=== PATIENT | female | born 1995 | race Caucasian/White ===

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

== ENCOUNTER 2017-08-30 19:09 | Emergency (ER) | payer OTHER ==
[~2017-08-30] VITALS: Ht 170.2 cm; Wt 71.7 kg
[~2017-08-30 19:09] MED LIST: IMPLANON; TRAM-10 PO
[2017-08-30 19:11] VITALS: TEMP 36.8; Ht 170.2 cm; Wt 71.7 kg
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
--- NOTE | 2017-08-30 20:06 | DIAGNOSTIC IMAGING REPORT ---
ABDOMEN 2VIEW W/PA CHEST RTN HISTORY: 21 years-old Female eval for constipation and impaction acute constipation COMPARISON: None available TECHNIQUE: Frontal view of the chest with erect and supine views of the abdomen FINDINGS: Cardiomediastinal and hilar silhouettes are within normal limits. There is no pneumothorax, pleural effusion, focal airspace consolidation or overt pulmonary edema. Bones of the chest are grossly intact. No pneumoperitoneum on the upright projection. The bowel gas pattern is nonobstructive. There are a few nonspecific small bowel air-fluid levels within the right upper abdomen, likely incidental. There is a moderate volume of formed stool throughout the bowel, predominantly within the ascending portion and rectosigmoid. No urolith. No organomegaly or fracture. IMPRESSION: 1. No acute cardiopulmonary process. 2. Nonobstructive bowel gas pattern. 3. Moderate volume of formed stool throughout the colon, notably within the ascending and rectosigmoid portions suggests constipation. The above report was generated using voice recognition software. It may contain grammatical, syntax or spelling errors. Electronically signed by: Sae Be M.D. 08/30/2017 8:04 PM Dictated Date/Time: 08/30/2017 8:02 PM
[2017-08-30] MEDS ORDERED: ETON1IMP2 INTRAD (20:27)
[2017-08-30] MEDS ORDERED: HYDR-5688 PO (20:28)
[2017-08-30] MEDS ORDERED: IBUP-1459 PO (20:29)
[2017-08-30] MEDS ORDERED: ONDA4TAB10 SL (20:30)
[2017-08-30 21:16] VITALS: BP 131/70; PULSE 58; O2SAT 98
== END 2017-08-30 21:17 | disposition home or self-care (01) ==
LOC: C.EDB 19:10 → C.EDC 21:17
DX: K59.03 Drug induced constipation (principal); S30.1XXA Contusion of abdominal wall, initial encounter; V89.2XXA Person injured in unspecified motor-vehicle accident, traffic, initial encounter; Z79.3 Long term (current) use of hormonal contraceptives

== ENCOUNTER 2017-11-08 09:33 | Emergency (ER) | payer OTHER ==
[~2017-11-08] VITALS: Ht 170.2 cm; Wt 71.2 kg
[~2017-11-08 09:33] MED LIST changes: +ETON1IMP2 INTRAD; +HYDR-5688 PO; +IBUP-1459 PO; -IMPLANON; +ONDA4TAB10 SL; -TRAM-10 PO
[2017-11-08 09:36] VITALS: TEMP 36.2; Ht 170.2 cm; Wt 71.2 kg
--- NOTE | 2017-11-08 09:53 | EMERGENCY ROOM VISIT NOTE ---
History Report prepared by Samantha: Fareed Singh Under the Supervision of: Dr. Wei Leahy M.D. First contact with patient: 09:44 Chief Complaint: ANKLE PAIN Stated Complaint: RIGHT SWOLLEN ANKLE History of Present Illness The patient is a 22 year old female who presents to the Emergency Room with complaints of constant, moderate, swelling to the right ankle beginning three days ago. The patient states she slipped and fell in the shower three days ago. She reports she did not hit her head, but she hit her left ankle and right knee. The patient notes she has a history of rolling her ankles, but they have never swelled like this before. She states she also broke her right ankle twice before. The patient reports last night her ankle gave out, so she decided to come to the ED this morning. She also denies hip pain and knee pain. Source of History: patient Onset: three days ago Position: ankle (right) Symptom Intensity: moderate Quality: other (swelling) Timing: constant Note: Denies: hip pain and knee pain Review of Systems See HPI for pertinent positives and negatives. A total of ten systems were reviewed and were otherwise negative. Past Medical & Surgical Medical Problems: (1) Ankle sprain (2) Constipation Family History Cancer Social History Smoking Status: Never Smoker Marital Status: single Housing Status: lives with roommate Occupation Status: [employer] Current/Historical Medications Scheduled Etonogestrel (Nexplanon), 68 MG INTRAD CONTINOUS Fluoxetine (Prozac), 10 MG PO HS Scheduled PRN Nahvdlakcjkhkvex-Hfqizudhgc-Fy (Nite Time Multi-Symptom), 2 TBS PO Q4H PRN for Cough Ibuprofen (Motrin), 400 MG PO Q6H PRN for Pain Ondasetron Odt (Zofran Odt), 4 MG SL Q6H PRN for Nausea or Vomiting Allergies Coded Allergies: No Known Allergies (Unverified , 11/08/17) Physical Exam Vital Signs Date Time Temp Pulse Resp B/P (MAP) Pulse Ox O2 Delivery O2 Flow Rate FiO2 11/08/17 11:00 92 16 127/90 98 11/08/17 09:36 36.2 110 16 109/68 98 Room Air Physical Exam Physical Exam GENERAL: She is oriented to person, place, and time. She appears well- developed and well-nourished. She does not appear distressed. ____ HENT: Exam performed. Head: Normocephalic and atraumatic. Right Ear: External ear normal. No mastoid tenderness. Left Ear: External ear normal. No mastoid tenderness. Mouth/Throat: The oropharynx is clear and moist. No trismus in the jaw. No dental abscesses or uvula swelling. No oropharyngeal exudate or tonsillar abscesses. ____ EYES: Conjunctivae and EOM are normal. Pupils are equal, round, and reactive to light. Right eye exhibits no discharge. Left eye exhibits no discharge. No scleral icterus. ____ NECK: Normal range of motion. Neck supple. No JVD present. No spinous process tenderness present. No carotid bruit present. No rigidity. No tracheal deviation and normal range of motion present. No Brudzinski's sign and no Kernig 's sign noted. ____ CV: Normal rate, regular rhythm, normal heart sounds and intact distal pulses. There is no peripheral edema. Palpable radial pulses bue. ____ PULM/CHEST: Effort normal and breath sounds normal. No respiratory distress. No stridor. She has no wheezes. She has no rales. Chest Wall: She exhibits no tenderness. ____ ABD: The abdomen is soft. Bowel sounds are normal. She has no distension. No mass is present. There is no tenderness. There is no rebound, no guarding, no Carlson's sign and no tenderness at McBurney's point. Rovsig negative MUSC/SKEL: RLE: Tenderness to palpation to the right ankle over the medial and lateral malleolus. Swelling and ecchymosis over the lateral malleolus. No tenderness to palpation to the right fibular head or metatarsals. LLE: no pain or swelling FROM Pelvis is stable. LYMPH: No cervical adenopathy. ____ NEURO: She is alert and oriented to person, place, and time. She has normal strength. No cranial nerve deficit or sensory deficit. Coordination and gait normal. GCS eye subscore is 4. GCS verbal subscore is 5. GCS motor subscore is 6. cerbellar tests wnl. ____ SKIN: Skin is warm and dry. She is not diaphoretic. ____ PSYCH: She has a normal mood and affect. Her behavior is normal. Judgment and thought content normal. ____ Medical Decision & Procedures ER Provider Diagnostic Interpretation: X-ray: Per my interpretation, radiologist review. R ANKLE MIN 3 VIEWS ROUTINE CLINICAL HISTORY: 22 years-old Female presenting with pain over lateral and medial malleolus . TECHNIQUE: Frontal, mortise, and lateral views of the right ankle were obtained. COMPARISON: 10/14/2016. FINDINGS: Unchanged ossicle at the inferior pole of the lateral malleolus. Ankle mortise intact. Soft tissue swelling over the lateral malleolus. No acute fracture or malalignment. No degenerative change. IMPRESSION: 1. Soft tissue swelling over the lateral malleolus. 2. No acute osseous injury. 3. Suspected prior injury or chronic degeneration at the inferior pole of the lateral malleolus. Electronically signed by: Andrew Jean Baptiste M.D. 11/08/2017 10:08 AM Dictated Date/Time: 11/08/2017 10:07 AM ED Course 0950: The patient was evaluated in room C07. A complete history and physical exam was performed. 1053: vss xray wnl DISCHARGE - Plan of care discussed with patient and questions answered. The patient was given both verbal and printed discharge instructions. The patient verbalized understanding and ability to comply. The patient is to seek outpatient follow up as noted in the discharge instructions. The patient verbalized understanding and ability to comply. The patient is discharged in stable condition. The patient was instructed to return for worsening symptoms. Medical Decision vss xray wnl DISCHARGE - Plan of care discussed with patient and questions answered. The patient was given both verbal and printed discharge instructions. The patient verbalized understanding and ability to comply. The patient is to seek outpatient follow up as noted in the discharge instructions. The patient verbalized understanding and ability to comply. The patient is discharged in stable condition. The patient was instructed to return for worsening symptoms. Head Trauma GCS Score: 15 Medication Reconcilliation Current Medication List: was personally reviewed by me Blood Pressure Screening Patient's blood pressure: Normal blood pressure Blood pressure disposition: Did not require urgent referral Impression Primary Impression: Ankle sprain Scribe Attestation The scribe's documentation has been prepared under my direction and personally reviewed by me in its entirety. I confirm that the note above accurately reflects all work, treatment, procedures, and medical decision making performed by me. The chart was completed utilizing [employer] voice recognition software. Grammatical errors, random word insertions, pronoun errors, and incomplete sentences are an occasional consequence of this system due to software limitations, ambient noise, and hardware issues. Any formal questions or concerns about the content, text, or information contained within the body of this dictation should be directly addressed to the physician for clarification. Departure Information Dispostion Home / Self-Care Referrals [facility] Provider [facility] Forms HOME CARE DOCUMENTATION FORM, IMPORTANT VISIT INFORMATION Patient Instructions ED Sprain Ankle, My [facility] Additional Instructions apply ice to the affected area and keep affected area elevated. use brace as instructed. take motrin as needed for pain. avoid excessive exercise or use Problem Qualifiers Primary Impression: Ankle sprain Encounter type: initial encounter Involved ligament of ankle: unspecified ligament Laterality: unspecified laterality Qualified Codes: S93.409A - Sprain of unspecified ligament of unspecified ankle, initial encounter
--- NOTE | 2017-11-08 10:10 | DIAGNOSTIC IMAGING REPORT ---
R ANKLE MIN 3 VIEWS ROUTINE CLINICAL HISTORY: 22 years-old Female presenting with pain over lateral and medial malleolus . TECHNIQUE: Frontal, mortise, and lateral views of the right ankle were obtained. COMPARISON: 10/14/2016. FINDINGS: Unchanged ossicle at the inferior pole of the lateral malleolus. Ankle mortise intact. Soft tissue swelling over the lateral malleolus. No acute fracture or malalignment. No degenerative change. IMPRESSION: 1. Soft tissue swelling over the lateral malleolus. 2. No acute osseous injury. 3. Suspected prior injury or chronic degeneration at the inferior pole of the lateral malleolus. Electronically signed by: Andrew Jean Baptiste M.D. 11/08/2017 10:08 AM Dictated Date/Time: 11/08/2017 10:07 AM
[2017-11-08] MEDS ORDERED: [UNRECOGNIZED DRUG - CODE] PO (10:11)
[2017-11-08] MEDS ORDERED: FLUO10CA48 PO (10:11)
[2017-11-08 11:00] VITALS: BP 127/90; PULSE 92; O2SAT 98
== END 2017-11-08 11:00 | disposition home or self-care (01) ==
LOC: C.EDB 09:36 → C.EDC 11:00
DX: S93.401A Sprain of unspecified ligament of right ankle, initial encounter (principal); Z79.899 Other long term (current) drug therapy; Z87.19 Personal history of other diseases of the digestive system; Z87.828 Personal history of other (healed) physical injury and trauma; W18.2XXA Fall in (into) shower or empty bathtub, initial encounter

== ENCOUNTER 2018-01-05 18:12 | Emergency (ER) | payer OTHER ==
[~2018-01-05] VITALS: Ht 170.2 cm; Wt 61.8 kg
[~2018-01-05 18:12] MED LIST changes: -ETON1IMP2 INTRAD; +FLUO10CA48 PO; -HYDR-5688 PO; +[UNRECOGNIZED DRUG - CODE] PO
[2018-01-05 18:34] VITALS: TEMP 36.5; Ht 170.2 cm; Wt 61.8 kg
[2018-01-05 20:17] LABS: BASO % 0.4 %; BASO ABS # 0.06 K/uL (0-0.2); EOS % 0.5 %; EOS ABS # 0.07 K/uL (0-0.5); HEMOGLOBIN 14.6 g/dL (12.0-16.0); IG# 0.09 K/uL (0.00-0.02); LYMPH % 16.2 %; LYMPH ABS # 2.24 K/uL (1.2-3.4); MEAN CELL VOLUME 88.2 fL (80-100); MEAN CORPUSCULAR HEMOGLOBIN 30.7 pg (25-34); MEAN CORPUSCULAR HGB CONC 34.8 g/dl (32-36); MEAN PLATELET VOLUME 9.3 fL (7.4-10.4); MONO ABS # 0.42 K/uL (0.11-0.59); NEUT % 79.2 %; NEUT ABS # 10.91 K/uL (1.4-6.5); PLATELET COUNT 393 K/uL (130-400); RED CELL DISTRIBUTION WIDTH CV 12.9 % (11.5-14.5); RED CELL DISTRIBUTION WIDTH SD 41.6 fL (36.4-46.3); WHITE BLOOD COUNT 13.79 K/uL (4.8-10.8)
[2018-01-05] MEDS ORDERED: ETON1IMP2 INTRAD (20:27)
[2018-01-05 20:45] LABS: ALBUMIN 4.1 gm/dl (3.4-5.0); CALCIUM 9.1 mg/dl (8.5-10.1); TOTAL PROTEIN 7.3 gm/dl (6.4-8.2)
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
[2018-01-05] MEDS ORDERED: OPTIRAY 320 IV PRN (21:30)
--- NOTE | 2018-01-05 21:33 | DIAGNOSTIC IMAGING REPORT ---
CT SCAN OF THE ABDOMEN AND PELVIS WITH IV CONTRAST CLINICAL HISTORY: Right lower quadrant abdominal pain. COMPARISON STUDY: Abdominal radiographs dated 08/30/2017. TECHNIQUE: Following the IV administration of 115 cc of Optiray 320, CT scan of the abdomen and pelvis is performed from the lung bases to the proximal femora. Images are reviewed in the axial, sagittal, and coronal planes. IV contrast was administered without complication. A dose lowering technique was utilized adhering to the principles of ALARA. CT DOSE: 382.98 mGy.cm FINDINGS: Lung bases: The heart is normal in size and without pericardial effusion. The lung bases are clear. Liver: The contrast-enhanced liver is normal in size, contour, and attenuation. There is no intrahepatic biliary ductal dilatation. The hepatic veins and portal veins are patent. Gallbladder: Unremarkable. Spleen: Normal in size and attenuation. Pancreas: Unremarkable. Adrenal glands: Unremarkable. Kidneys: The contrast enhanced kidneys are normal in size and without hydronephrosis. The kidneys enhance symmetrically. Abdominal vasculature: The abdominal aorta is normal in course and caliber. Bowel: The small bowel and colon are normal in course and caliber. The appendix is normal as visualized. Peritoneum: There is no intraperitoneal free air or abdominal ascites. There is a small fat-containing umbilical hernia. Lymphadenopathy: None. Pelvic viscera: The bladder, uterus, and adnexa are normal as visualized. A dominant follicle in the left ovary measures 2.7 cm. Additional small follicles are seen bilaterally. Trace free fluid is noted in the cul-de-sac. Skeletal structures: No lytic or blastic lesions are seen. IMPRESSION: 1. There are no acute infectious or inflammatory findings in the abdomen or pelvis. 2. Trace free fluid in the cul-de-sac is likely within physiologic limits. Electronically signed by: Yasir Hogue M.D. 01/05/2018 9:32 PM Dictated Date/Time: 01/05/2018 9:28 PM
[2018-01-05] MEDS ORDERED: PRED10TA PO (22:02)
[2018-01-05] MEDS ORDERED: [UNRECOGNIZED DRUG - REMARK] PO (22:02)
[2018-01-05] MEDS ORDERED: TRAM-10 PO (22:02)
--- NOTE | 2018-01-05 22:44 | DIAGNOSTIC IMAGING REPORT ---
ULTRASOUND OF THE PELVIS CLINICAL HISTORY: Right pelvic pain. COMPARISON STUDY: Pelvic CT dated 01/05/2018. TECHNIQUE: Real-time, grayscale, and color flow sonography of the pelvis is performed transabdominally. Images are reviewed in the transverse and longitudinal planes. FINDINGS: Uterus: The uterus is normal in size and echotexture, measuring 6.6 x 2.7 x 2.4 cm. Endometrium: The endometrium is normal in appearance, and the endometrial stripe is normal in thickness measuring up to 0.3 cm. Ovaries: The ovaries are normal in size and morphology. The right ovary measures 2.5 x 1.3 x 2.0 cm and the left ovary measures 3.7 x 2.3 x 3.3 cm. A dominant follicle in the left ovary measures up to 3.1 cm. Normal Doppler waveforms are shown within both ovaries. Pelvis: There is no free fluid in the cul-de-sac. No concerning adnexal lesion is seen. IMPRESSION: Unremarkable transabdominal sonographic assessment of the pelvis. Electronically signed by: Yasir Hogue M.D. 01/05/2018 10:43 PM Dictated Date/Time: 01/05/2018 10:42 PM
[2018-01-05 23:26] VITALS: BP 110/60; PULSE 62; O2SAT 99
== END 2018-01-05 23:38 | disposition home or self-care (01) ==
LOC: C.EDB 18:14 → C.EDC 23:38
DX: R10.31 Right lower quadrant pain (principal)